=== PATIENT | female | born 1995 | race Caucasian/White ===

== ENCOUNTER 2019-05-30 19:18 | Emergency (ER) | payer BC ==
[2019-05-30 19:38] VITALS: BP 125/68
[2019-05-30] MEDS ORDERED: DOXYcycline CAP(*) 100 MG PO ONE (19:49)
--- NOTE | 2019-05-30 19:52 | UC ---
Skin Complaint HPI - HPI Summary HPI Summary: insect bite to abd, noted on SUn or MON with appearance of hive. seen at [facility] on . Using hydrocortisone cream to area since , area now 8x3 cm and darkening to middle, enlarging. 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 - History of Current Complaint Chief Complaint: UCSkin Time Seen by Provider: 05/30/19 19:27 Stated Complaint: INSECT BITE Hx Obtained From: Patient Hx Last Menstrual Period: 2 weeks Pain Intensity: 0 Aggravating Factor(s): Nothing Alleviating Factor(s): Nothing - Allergy/Home Medications Allergies/Adverse Reactions: Allergies Allergy/AdvReac Type Severity Reaction Status Date / Time No Known Allergies Allergy Verified 05/30/19 19:40 Home Medications: Home Medications Control 1 tab PO DAILY 05/30/19 [History Confirmed 05/30/19] Cholecalciferol TAB* [Vitamin D TAB*] 2,000 units PO DAILY 05/30/19 [History Confirmed 05/30/19] PMH/Surg Hx/FS Hx/Imm Hx - Additional Past Medical History Additional PMH: no chronic conditions Previously Healthy: Yes - Surgical History Surgical History: None - Social History Alcohol Use: None Substance Use Type: None Smoking Status (MU): Never Smoked Tobacco Review of Systems All Other Systems Reviewed And Are Negative: Yes Constitutional: Negative: Fever, Fatigue Skin: Positive: Rash - RUQ bug bite, c/o itching, nontender Respiratory: Negative: Shortness Of Breath Musculoskeletal: Negative: Arthralgia, Myalgia Neurological: Negative: Paresthesia, Numbness Physical Exam Triage Information Reviewed: Yes Appearance: Well-Appearing Vital Signs: Initial Vital Signs Temp 99.1 F 05/30/19 19:31 Pulse 79 05/30/19 19:31 Resp 16 05/30/19 19:31 BP 125/68 05/30/19 19:31 Pulse Ox 99 05/30/19 19:31 Vital Signs Reviewed: Yes Respiratory: Positive: No respiratory distress Neurological: Positive: Alert Skin: Positive: Rashes - RUQ skin lesion w/ clear borders measuring 8x3cm w/ a central darkened area. nontender and no open areas. 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 This medication also treats skin infections which also could be happening. her vitals are good and we disc side effects of meds. - Differential Diagnoses - Skin Complaint Differential Diagnoses: Abscess, MRSA, Tick Born Illness, Other - Diagnoses Provider Diagnosis: Bug bite Discharge ED - Sign-Out/Discharge Documenting (check all that apply): Patient Departure All imaging exams completed and their final reports reviewed: No Studies - Discharge Plan Condition: Good Disposition: HOME Prescriptions: DOXYcycline CAP(*) [DOXYcycline 100MG CAP(*)] 100 mg PO BID 14 Days #27 cap Patient Education Materials: Lyme Disease (ED) Referrals: No Primary Care Phys,NOPCP [Primary Care Provider] - Additional Instructions: It is unclear if you have Lyme but given that you work outside in an endemic area and your bug bite appears to be getting worse w/ what appears to be bull's eye rash it is reasonable to treat. This medication also treats skin infections which also could be happening. - Billing Disposition and Condition Condition: GOOD Disposition: Home
== END 2019-05-30 20:01 | disposition home or self-care (01) ==
LOC: UCEAST 19:18
DX: S30.861A Insect bite (nonvenomous) of abdominal wall, initial encounter (principal); W57.XXXA Bitten or stung by nonvenomous insect and other nonvenomous arthropods, initial encounter; Y92.9 Unspecified place or not applicable
CPT/HCPCS: 99202; A9270-GY; G0463